=== PATIENT | male | born 1950 | race Caucasian/White ===

== ENCOUNTER → 2017-08-05 | Outpatient (CLI) | payer MEDICARE ==
--- NOTE | 2017-08-05 11:09 | XR ---
EXAMINATION TYPE: XR orbit detect foreign body DATE OF EXAM: 08/05/2017 COMPARISON: NONE HISTORY: Metal injury to right eye with surgical removal, pre-MRI study TECHNIQUE: X-ray orbits detected performed body with Andre and Dayan frontal view and true latera l view performed. FINDINGS: No metallic intraorbital foreign body is identified to prevent MRI study. IMPRESSION: As above
== END | disposition home or self-care (01) ==
LOC: RADXRMAIN 10:36
PROVIDERS: ATTEND Orthopaedic Surgery Sports Medicine
DX: Z09 Encounter for follow-up examination after completed treatment for conditions other than malignant neoplasm (principal); M25.461 Effusion, right knee
CPT/HCPCS: 70030

== ENCOUNTER 2019-01-25 08:35 | Day surgery (SDC) | payer MEDICARE ==
[2019-01-25 08:56] VITALS: BP 137/75; PULSE 70; RESP 20; TEMP 98.1
--- NOTE | 2019-01-25 12:25 | US ---
EXAMINATION TYPE: US FNA first lesion DATE OF EXAM: 01/25/2019 COMPARISON: NONE HISTORY: Neck nodule, lymph node. Maximal barrier technique was utilized. After informed consent, skin overlying the lesion in the upp er neck was localized with ultrasound and the overlying skin prepped and draped. Ultrasound was utili zed using sterile technique. Lidocaine was used for local anesthesia. Four passes with a 25-gauge ne edle were made into the nodule and aspirated specimen was submitted to cytology. Following the proce dure hemostasis achieved. No immediate complication. The patient discharged in stable condition. IMPRESSION: STATUS POST ULTRASOUND GUIDED FINE NEEDLE ASPIRATION OF NECK NODULE, PATHOLOGY IS PENDING . THIS PROCEDURE WAS PERFORMED BY THE UNDERSIGNED.
== END 2019-01-25 10:30 | disposition home or self-care (01) ==
LOC: RADPROMAIN 08:35
PROVIDERS: ATTEND Otolaryngology
DX: R59.0 Localized enlarged lymph nodes (principal); I10 Essential (primary) hypertension; Z79.82 Long term (current) use of aspirin; Z79.899 Other long term (current) drug therapy; Z87.891 Personal history of nicotine dependence
CPT/HCPCS: 10005; 88173; 88305

== ENCOUNTER → 2019-02-16 | Day surgery (SDC) | payer MEDICARE ==
[2019-02-09 13:29] VITALS: BMI 25.5
[~2019-02-16] MED LIST: BACITRACIN OINT 1 EACH PACKET TOPICAL ONE; FAMOTIDINE 20 MG/2 ML VIAL IV ONE; HYDROmorphone 0.5 MG/0.5 ML SYRINGE IVP PRN; LACTATED RINGERS 1,000 ML IV ONE; LACTATED RINGERS 1,000 ML IV SCH; LIDOCAINE 1% 20 ML VIAL (10MG/ML) FOR IV START INTRADERMA PRN; LIDOCAINE 1% INJ 10MG/ML (20 ML MDV) ONE; LIDOCAINE 1%-EPI 1:100,000 20 ML VIAL SQ ONE; MIDAZOLAM 2 MG/2 ML VIAL ONE; ONDANSETRON 4 MG/2 ML VIAL IVP ONE; ONDANSETRON 4 MG/2 ML VIAL IVP PRN; PROPOFOL 10 MG/ML 20 ML VIAL IV ONE; SODIUM BICARB 8.4% 50 ML VIAL (1 MEQ/ML) MISCELLANE ONE; SUCCINYLCHOLINE CHLORIDE 100 MG/5 ML SYR IV ONE; ceFAZolin 1,000 MG in DEXTROSE/WATER 1 50ML.BAG IV ONE; ePHEDrine SULFATE/0.9% NACL/PF 50 MG/5 ML SYRINGE IV ONE; fentaNYL (PF) 50 MCG/ML 2 ML AMP ONE
[2019-02-16 09:06] VITALS: TEMP 97.4
--- NOTE | 2019-02-16 12:04 | P.OP ---
Date of Procedure: 02/16/19 Preoperative Diagnosis: Left anterior cervical lymphadenopathy Postoperative Diagnosis: Same Procedure(s) Performed: Excisional biopsy left anterior cervical lymph nodes Anesthesia: INESSAA Surgeon: Alphonso Rubio Estimated Blood Loss (ml): 3 Pathology: other (Left anterior cervical lymph nodes) Condition: stable Disposition: PACU Indications for Procedure: This 68-year-old white male who presented with a palpable left anterior cervical lymph nodes. He has undergone fine-needle aspiration which is suspicious for lymphoma Operative Findings: 2 left anterior cervical nodes approximate 1.5 x 1 cm each which were both excised deep to the platysma layer Description of Procedure: The patient was brought in the operative suite and placed in a supine position. Patient underwent induction of general anesthesia with oral endotracheal intubation without difficulty. The patient was prepped and draped in usual aseptic fashion. 1% lidocaine with 1 100,000 epinephrine was infused subcutaneously and field block fashion overlying the anterior cervical nodes. This was left to work for 7 minutes vasoconstrictive effect. A linear incision was then fashioned within a relaxed skin tension line in the left anterior neck and carried sharply through the skin and subcutaneous tissue as well as platysma layer. The lymph nodes were identified readily and were both dissected from the surrounding tissue grossly entirely and sent to the pathologist fresh for histology touch preps and flow cytometry and multiple cultures. Good hemostasis was noted with electrocautery and the wound was closed in the platysma and subcutaneous layers with inverted interrupted 4-0 Vicryl suture and skin closed with running locking 5-0 Prolene suture. Bacitracin ointment and a sterile dressing were placed. The patient was allowed to emerge from anesthesia having tolerated procedure well was extubated in the operative suite and transferred to postop recovery area in satisfactory condition.
[2019-02-16 12:40] VITALS: RESP 17
[2019-02-16 12:52] VITALS: BP 136/87; PULSE 86
== END | disposition home or self-care (01) ==
LOC: OR 08:22
PROVIDERS: ATTEND Otolaryngology
DX: C91.10 Chronic lymphocytic leukemia of B-cell type not having achieved remission (principal); R59.0 Localized enlarged lymph nodes; I10 Essential (primary) hypertension; Z79.82 Long term (current) use of aspirin; Z79.899 Other long term (current) drug therapy; Z87.891 Personal history of nicotine dependence
CPT/HCPCS: 38510; 88307; 87070; 87205; 87075; 87116; 87102; 87206; J2250; J2405; J2001; J3010; J0690; J0330; J2704; 88341; 88342

== ENCOUNTER → 2019-03-10 | Outpatient (CLI) | payer MEDICARE ==
[2019-03-10 11:10] LABS: Blood Urea Nitrogen 14 mg/dL (9-20)
--- NOTE | 2019-03-11 15:08 | CT ---
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 CT DLP: 1389 mGycm. Automated Exposure Control for Dose Reduction was Utilized. CONTRAST: CT scan of the thorax, abdomen and pelvis is performed with IV Contrast, patient injected with 100 mL of Isovue 300. FINDINGS: LUNGS: There are calcified benign granulomas seen in both upper and lower lobes. The lungs are grossl y clear, there is no concerning parenchymal mass or nodule identified. Few punctate 2 mm probable ear ly granulomas are seen such as on series 4 image 40 in the right middle lobe, and the right lung apex on image 9 and in the right lung apex on image 12 anteriorly. There is no pleural effusion or pneumo thorax seen. The tracheobronchial tree is patent. MEDIASTINUM: There are prominent paratracheal superior mediastinal lymph nodes such as posterior righ t lateral to the trachea on series 3 image 8 and posterior left lateral to the trachea on series 3 im age 12 measuring 8 mm and 7 mm respectively. Pretracheal lymph node measures 8 mm on image 18, left p aratracheal lymph node measures 9 mm on image 22, aorticopulmonary window lymph nodes are prominent m easuring up to 9 mm, and conglomeration of right hilar lymph nodes are enlarged measuring up to 1.2 c m in short axis. There is also subcarinal adenopathy anterior to the esophagus measuring up to 1.5 cm in short axis. Slightly prominent but nonenlarged bilateral axillary lymph nodes are seen. No suspic ious internal mammary adenopathy. Benign calcified hilar lymph nodes are present. Ascending thoracic aorta is within normal limits measuring 3.8 cm. Few scant coronary calcifications are seen. Main pulmonary arteries within normal limits. Heart is nonenlarged. No pericardial effusion . OTHER: There is minimal retroareolar gynecomastia slightly asymmetric, left greater than right. LIVER/GB: There is a too small to accurately characterize 5 mm probable hepatic cyst in segment 4A. N o intrahepatic biliary ductal dilatation or radiopaque cholelithiasis. PANCREAS: Punctate questionable pancreatic lesion measuring 2 mm at the pancreatic head appears to be contiguous with the pancreatic duct and may represent a mildly dilated side branch/sidebranch IPMN a nd could be further evaluated with MRCP. On coronal images this simply appears as a slightly tortuous nondilated main pancreatic duct. SPLEEN: No significant abnormality is seen. There is a small splenule adjacent to the [place] spleen. ADRENALS: No significant abnormality is seen. KIDNEYS: There is a 4 mm nonobstructing left upper pole renal calculus and 2 mm left lower pole nonob structing renal calculus. On the right there is a lower pole 1.4 cm cyst. No hydronephrosis of either kidney. BOWEL: Few colonic diverticula are seen without pericolonic fat stranding. No dilated large or small bowel. Appendix is contrast-filled and within normal limits. GENITAL ORGANS: Hypoattenuated lesion could represent a utricle cyst, prior TURP (less likely) or rodrigo inal vesicle cyst as it is at the margin of the the prostate gland and seminal vesicles. Prostate gla nd containing central zone calcifications. There is an at least small partially visualized right hydr ocele. LYMPH NODES: No greater than 1cm abdominal or pelvic lymph nodes are appreciated. Left external adan n iliac lymph node is slightly prominent measuring 6 mm on image 104. Right external chain lymph node is also prominent measuring 6 mm on image 100. OSSEOUS STRUCTURES: Minimal degenerative changes of the spine. OTHER: Mild atherosclerosis is seen of the abdominal aorta and its branches. IMPRESSION: 1. Mildly enlarged mediastinal lymph nodes. No pathologically enlarged lymph nodes in the abdomen or pelvis. Minimally prominent bilateral external iliac chain lymph nodes measure only 6 mm (not enlarge d by size criteria). 2. Cystic lesion of the posterior prostate gland could represent a utricle cyst, seminal vesicle cyst , or less likely prostate gland lesion. 3. Benign granulomatous changes of the lungs and hilum are seen in addition to very small 2 mm subple ural noncalcified pulmonary nodules that may be also sequela of granulomatous disease but could be as sessed for stability on 12 month follow-up CT thorax.
== END | disposition home or self-care (01) ==
LOC: RADCTMAIN 10:14
PROVIDERS: ATTEND Internal Medicine Hematology & Oncology
DX: C83.01 Small cell B-cell lymphoma, lymph nodes of head, face, and neck (principal); N42.83 Cyst of prostate; R59.0 Localized enlarged lymph nodes; R91.8 Other nonspecific abnormal finding of lung field
CPT/HCPCS: 82565; 84520; 71260; 74177; 36415; Q9967

== ENCOUNTER → 2020-09-07 | Day surgery (SDC) | payer MEDICARE ==
[2020-09-05 13:16] VITALS: BMI 24.3
[~2020-09-07] MED LIST changes: -BACITRACIN OINT 1 EACH PACKET TOPICAL ONE; -FAMOTIDINE 20 MG/2 ML VIAL IV ONE; -HYDROmorphone 0.5 MG/0.5 ML SYRINGE IVP PRN; -LACTATED RINGERS 1,000 ML IV ONE; +LIDOCAINE 1% (10MG/ML) FOR IV START INTRADERMA PRN; -LIDOCAINE 1% 20 ML VIAL (10MG/ML) FOR IV START INTRADERMA PRN; -LIDOCAINE 1%-EPI 1:100,000 20 ML VIAL SQ ONE; -MIDAZOLAM 2 MG/2 ML VIAL ONE; -ONDANSETRON 4 MG/2 ML VIAL IVP ONE; -ONDANSETRON 4 MG/2 ML VIAL IVP PRN; -SODIUM BICARB 8.4% 50 ML VIAL (1 MEQ/ML) MISCELLANE ONE; -SUCCINYLCHOLINE CHLORIDE 100 MG/5 ML SYR IV ONE; -ceFAZolin 1,000 MG in DEXTROSE/WATER 1 50ML.BAG IV ONE; -ePHEDrine SULFATE/0.9% NACL/PF 50 MG/5 ML SYRINGE IV ONE; -fentaNYL (PF) 50 MCG/ML 2 ML AMP ONE
[2020-09-07 08:50] VITALS: TEMP 97.8
--- NOTE | 2020-09-07 10:40 | P.PCN ---
Date of Procedure: 09/07/20 Procedure(s) Performed: BRIEF HISTORY: Patient is a 70-year-old pleasant male scheduled for an elective colonoscopy as a part of ulcer bowel movements and prior history of colon polyps. Last colonoscopy was 5 years ago. PROCEDURE PERFORMED: Colonoscopy. PREOPERATIVE DIAGNOSIS: History of colon polyps and altered bowel movements. IV sedation per Anesthesia. PROCEDURE: After informed consent was obtained, the patient, was brought into the endoscopy unit. IV sedation was administered by Anesthesia under continuous monitoring. Digital rectal examination was normal. Initially the Olympus CF-160 flexible video colonoscope was then inserted in the rectum, gradually advanced into the cecum without any difficulty. Careful examination was performed as the scope was gradually being withdrawn. Ileocecal valve and the appendiceal orifice were visualized and appeared normal. Prep was excellent. Mucosa of the cecum, ascending colon, transverse colon, descending colon, sigmoid colon, and rectum appeared normal. Scattered sigmoid diverticulosis seen. Retroflexion was performed in the rectum and no lesions were seen. The patient tolerated the procedure well. IMPRESSION: Normal-appearing colon from rectum to cecum with no evidence of colorectal neoplasia . Scattered sigmoidal diverticulosis. RECOMMENDATIONS: Findings of this examination were discussed with the patient as well as his family. He was advised to have a repeat surveillance colonoscopy in 5 years from now because of the prior history of colon polyps..
[2020-09-07 11:04] VITALS: BP 115/75; PULSE 60; RESP 20
== END ==
LOC: ORWHC2ENDO 07:52
PROVIDERS: ATTEND Internal Medicine Gastroenterology
DX: K57.30 Diverticulosis of large intestine without perforation or abscess without bleeding (principal); Z86.010 Personal history of colon polyps; Z79.82 Long term (current) use of aspirin; Z79.899 Other long term (current) drug therapy
CPT/HCPCS: 45378; J2001; J2704

== ENCOUNTER → 2024-06-23 | Outpatient (CLI) | payer MEDICARE | END | disposition home or self-care (01) | LOC: LABPRL | PROVIDERS: ATTEND Internal Medicine Hematology & Oncology | CPT/HCPCS: 82784; 83615; 84550; 87340 ==